=== PATIENT | male | born 1955 | race Caucasian/White ===

== ENCOUNTER 2018-07-23 13:30 | Inpatient (IN) | payer BC ==
[2018-07-31] MEDS ORDERED: VANCOMYCIN HCL 1,000 MG in DEXTROSE 5 % IN WATER 250 ML IVPB ONE ×2 (06:00)
[2018-07-31] MEDS ORDERED: METOCLOPRAMIDE 10 MG TABLET PO ONE (06:00)
[2018-07-31] MEDS ORDERED: FAMOTIDINE 20MG TABLET PO ONE (06:00)
[2018-07-31] MEDS ORDERED: MECLIZINE 25 MG TABLET PO ONE (06:00)
[2018-07-31 10:22] LABS: ABO GROUP O; RH TYPE NEGATIVE
[2018-07-31 10:24] LABS: ANTIBODY SCREEN NEGATIVE (NEGATIVE)
[2018-07-31] MEDS ORDERED: ACETAMINOPHEN W/ CODEINE 300MG/60MG TABLET PO PRN ×2 (14:00)
[2018-07-31] MEDS ORDERED: ONDANSETRON HCL IV 4 MG/2 ML VIAL IVP PRN (14:00)
[2018-07-31] MEDS ORDERED: MIDAZOLAM HCL 2MG/2ML VIAL IV ONE (14:00)
[2018-07-31] MEDS ORDERED: KETOROLAC 30 MG/ML VIAL IVP PRN ×2 (14:00)
[2018-07-31] MEDS ORDERED: FENTANYL PF 100MCG/2ML VIAL IV ONE (14:00)
[2018-07-31] MEDS ORDERED: KETOROLAC 30 MG/ML VIAL IVP ONE (14:00)
[2018-07-31] MEDS ORDERED: HYDROMORPHONE HCL 2 MG/ML VIAL IM PRN (14:00)
[2018-07-31] MEDS ORDERED: AL HYDROX/MAG HYDROX 30ML UD PO PRN (14:00)
[2018-07-31] MEDS ORDERED: BISACODYL 10 MG SUPP RC PRN (14:00)
[2018-07-31] MEDS ORDERED: TRAMADOL HCL 50 MG TABLET PO PRN (14:00)
[2018-07-31] MEDS ORDERED: CEFAZOLIN 2 Gram 2 GM/50 ML BAG IVPB SCH (14:00)
[2018-07-31] MEDS ORDERED: ACETAMINOPHEN 325 MG TAB PO PRN (14:00)
[2018-07-31] MEDS ORDERED: DIPHENHYDRAMINE HCL 25 MG CAPSULE PO PRN (14:00)
[2018-07-31] MEDS ORDERED: KETAMINE HCL 100MG/1ML VIAL INJ ONE (14:00)
[2018-07-31] MEDS ORDERED: MAGNESIUM HYDROXIDE 30 ML UDC PO PRN (14:00)
[2018-07-31] MEDS ORDERED: PROPOFOL 10 MG/ML VIAL IV ONE (14:00)
[2018-07-31] MEDS ORDERED: HYDROCODONE/APAP 10/325 TABLET PO PRN (14:00)
[2018-07-31] MEDS ORDERED: NALOXONE 0.4 MG/1 ML VIAL IVP PRN (14:00)
[2018-07-31] MEDS ORDERED: ZOLPIDEM TARTRATE 5 MG TABLET PO PRN (14:00)
[2018-07-31] MEDS: POTASSIUM CHLORIDE/D5-0.9%NACL 20 MEQ/1,000 ML BAG IV SCH ×2 (15:02→23:00)
[2018-07-31] MEDS ORDERED: PNEUM 13-VAL/PF 0.5 ML IM ONE (15:06)
[2018-07-31] MEDS ORDERED: TRANEXAMIC ACID 1,000 MG/10 ML ML IV ONE (15:50)
[2018-07-31] MEDS ORDERED: BUPIVACAINE 0.5% W/EPI MPF 30 ML VIAL IVP ONE (15:50)
--- NOTE | 2018-07-31 16:50 | Rehab Evaluation ---
Patient Information - Patient Information Diagnosis: R hip OA Ordered Treatment: PT Evaluate and Treat Status: Initial Evaluation Surgery: Yes (RTHR) Date of Surgery: 07/31/18 Past Medical/Surgical Hx: PAST MEDICAL/SURGICAL HISTORY Past Surgical History FOOT SX RIGHT ACHILLES TENDON LEFT C SCOPE PMH - Respiratory Hx Respiratory Disorders No PMH - Cardiovascular Hx Cardiovascular Disorders Yes Hx Hypertension Yes: PT QUIT TAKING HIS MEDS HAS NOT F/U WITH PCP TO RESTART Hx Irregular Heartbeat Yes: EXTRA BEAT HAS HAD HIS WHOLE LIFE Exercise Tolerance Fair Comment: HYPERLIPIDEMIA TAKES NO MEDS PMH - Neuro Hx Neurological Disorders No PMH - GI Hx Gastrointestinal Disorders No PMH - Hx Genitourinary Disorders Yes Hx Bladder Problem Yes: NOCTURIA PMH - Endocrine Hx Endocrine Disorders No PMH - Musculoskeletal Hx Musculoskeletal Disorders Yes Hx Arthritis Yes: RIGHT HIP AND RIGHT SHOULDER Comment: CTS BILAT WRISTS PMH - Psych Hx Psychiatric Problems Yes Hx Depression Yes: AT TIMES R/T HIP PAIN AND INABILITY TO BE ACTIVE PMH - Hematology/Oncology Hx Hematology/Oncology No Disorders Premorbid Status: Detail (The patient was independent with all mobility prior to surgery.) Social History: Detail Precautions: [place], Fall, Other (WBAT on the R LE) - Time With Patient Total Time Spent With Patient (Min): 30 Treatment Procedures: Detail (Initial Evaluation, gait training) Subjective Information - Subjective Information Per Patient (The patient had no complaints of pain.) Objective Data - Mental Status Patient Orientation: Oriented x3 - Visual Perception Appears within normal limits for therapeutic activities - ROM Not within normal limits (The patient's R hip is within THR precautions. All other AROM is WNL.) - Strength/Tone Not within normal limits (The patient's R LE strength was not tested secondary to s/p surgery. The patient's L LE strength is WNL.) - Bed Mobility Independent (The patient was independent with supine to and from sit transfer and scooting up in bed.) - Transfers Independent (The patient was independent with sit to and from stand transfer.) - Balance Balance Sitting: Good Balance Standing: Good - Gait Detail (The patient ambulated with a front wheeled walker WBAT on the R LE with supervision for safety a distance of 20 feet x 1.) Therapy Assessment - Therapy Assessment Detail (The patient was independent with bed mobility, transfers and required supervision for safety with ambulation only. Feel the patient will progress well with mobility. Due to stable condition the PT evaluation complexity is rated as low.) Problem List - Problem List Physical Therapy Problem List: Detail (1) Decreased R LE strength) Goals - Goals Physical Therapy Goals: 1) The patient will be independent with THR HEP. 2) The patient will ambulate with appropriate assistive device household distances WBAT on the R LE independently. 3) The patient will demonstrate good understanding of stairclimbing technique. Prognosis - Prognosis Good Plan - Plan Physical Therapy Plan: PT 1-2 sessions for gait training and instruction in HEP.
[2018-07-31] MEDS: HYDROCODONE/APAP 10/325 TABLET PO PRN (22:03)
[2018-07-31] MEDS: DOCUSATE SODIUM 100 MG CAPSULE PO SCH (22:03)
[2018-07-31] MEDS: VANCOMYCIN HCL 1,000 MG in DEXTROSE 5 % IN WATER 250 ML IVPB SCH ×2 (23:00)
[2018-08-01 06:21] LABS: HEMATOCRIT 37.6 % (42.0-52.0)
[2018-08-01 06:33] LABS: BLOOD UREA NITROGEN 18 mg/dL (8-23); CREATININE 0.7 mg/dL (0.7-1.2); EST GLOMERULAR FILTRATION RATE > 60 mL/min; GLUCOSE,RANDOM 141 mg/dL (74-109)
--- NOTE | 2018-08-01 08:31 | Rehab Evaluation ---
Patient Information - Patient Information Diagnosis: R hip OA Ordered Treatment: OT Evaluate and Treat Status: Initial Evaluation Surgery: Yes (RTHR) Date of Surgery: 07/31/18 Past Medical/Surgical Hx: PAST MEDICAL/SURGICAL HISTORY Past Surgical History FOOT SX RIGHT ACHILLES TENDON LEFT C SCOPE PMH - Respiratory Hx Respiratory Disorders No PMH - Cardiovascular Hx Cardiovascular Disorders Yes Hx Hypertension Yes: PT QUIT TAKING HIS MEDS HAS NOT F/U WITH PCP TO RESTART Hx Irregular Heartbeat Yes: EXTRA BEAT HAS HAD HIS WHOLE LIFE Exercise Tolerance Fair Comment: HYPERLIPIDEMIA TAKES NO MEDS PMH - Neuro Hx Neurological Disorders No PMH - GI Hx Gastrointestinal Disorders No PMH - Hx Genitourinary Disorders Yes Hx Bladder Problem Yes: NOCTURIA PMH - Endocrine Hx Endocrine Disorders No PMH - Musculoskeletal Hx Musculoskeletal Disorders Yes Hx Arthritis Yes: RIGHT HIP AND RIGHT SHOULDER Comment: CTS BILAT WRISTS PMH - Psych Hx Psychiatric Problems Yes Hx Depression Yes: AT TIMES R/T HIP PAIN AND INABILITY TO BE ACTIVE PMH - Hematology/Oncology Hx Hematology/Oncology No Disorders Premorbid Status: Detail (The patient was independent with all mobility prior to surgery. He and his share all home mgmt, meal prep, laundry and they care for her parents.) Social History: Detail (The patient lives with his and they are currently living in her parents finished basement to help care for them. He reports having no steps at the entrance and he plans to stay in the basement level. He has a tub/shower combination with grab bars, there are 2 steps into the tub. He has a standard height toilet with a riser seat and grab bars. His will be assisting with all IADL for a while. He has a long shoe horn, sock aid, stations superintendent, 2 wheeled walker and crutches.) Precautions: [place], Fall, Other (WBAT on the R LE, total hip precautions.) - Time With Patient Total Time Spent With Patient (Min): 45 Treatment Procedures: Detail (OT eval low complexity) Subjective Information - Subjective Information Per Patient Objective Data - Pain Pain Present: Yes (-07/15) - Mental Status Patient Orientation: Oriented x3 - Visual Perception Appears within normal limits for therapeutic activities - ROM Within normal limits (Donis UE AROM WNL) - Strength/Tone Within normal limits (Donis UE strength WNL although pt reports he has right shoulder problems and carpal tunnel syndrome.) - Coordination Appears within normal limits for therapeutic activities - Bed Mobility Independent (Pt was Ind with supine to sit after verbal cues for correct technique.) - Transfers Independent (Ind with sit to stand from EOB and chair heights.) - Balance Balance Sitting: Good Balance Standing: Good - Sensation Intact - Gait Detail (Pt ambulating in room with 2 wheeled walker and SBA) - ADL's/IADL's Detail (Pt educated and able to demonstrate learning of modified LE dressing techniques using stations superintendent, sock aid and long shoe horn to doff slipper socks and don socks, pants and slip on shoes while maintaining total hip precautions. Reviewed kitchen and shower safety and modifications as well as hip precautions , pt is able to verbalize understanding.) Therapy Assessment - Therapy Assessment Detail (Pt is Ind with modified LE dressing techniques while using adaptive equipment and maintaining total hip precautions.) Problem List - Problem List Physical Therapy Problem List: Detail (1) Decreased R LE strength) Occupational Therapy Problem List: Detail (No current IP OT problems identified. ) Goals - Goals Physical Therapy Goals: 1) The patient will be independent with THR HEP. 2) The patient will ambulate with appropriate assistive device household distances WBAT on the R LE independently. 3) The patient will demonstrate good understanding of stairclimbing technique. Occupational Therapy Goals: No current IP OT goals identified. Prognosis - Prognosis Good Plan - Plan Physical Therapy Plan: PT 1-2 sessions for gait training and instruction in HEP. Occupational Therapy Plan: No further IP OT recommended. Thank you for this referral.
[2018-08-01] MEDS: POTASSIUM CHLORIDE/D5-0.9%NACL 20 MEQ/1,000 ML BAG IV SCH (09:31)
[2018-08-01] MEDS: DOCUSATE SODIUM 100 MG CAPSULE PO SCH (09:32)
[2018-08-01] MEDS ORDERED: FERROUS SULFATE 325 MG TAB PO SCH (10:00)
[2018-08-01] MEDS ORDERED: RIVAROXABAN 10 MG TABLET PO SCH (10:00)
[2018-08-01] MEDS ORDERED: LOSARTAN POTASSIUM 25 MG TABLET PO SCH (10:00)
[2018-08-01] MEDS ORDERED: TRANEXAMIC ACID 1,000 MG/10 ML ML IV ONE (10:28)
[2018-08-01] MEDS ORDERED: 0.9 % SODIUM CHLORIDE 10 ML VIAL IVP ONE (10:28)
--- NOTE | 2018-08-01 10:50 | Physical Therapy Tx Note ---
Physical Therapy Tx Note - Treatment Note Tolerated: Good Total Time Spent With Patient: 20 Physical Therapy Tx Note: Detail (The patient was in bed when PT arrived. The patient completed THR exercises including:gluteal sets, ankle pumps, quad sets, hamstring sets, heel slides. The patient was unable to complete supine hip abduction but knew of proper technique. The patient ambulated independently with 2 wheeled walker a distance of 100 feet x 1, WBAT on the R LE. The patient ambulated on 3 steps with supervision for safety using one railing and folded walker using proper technique( Patient has steps that lead into bathtub.) The patient has met all PT goals and is discharged from inpatient PT.) Physical Therapy Problem List: Detail (1) Decreased R LE strength) Physical Therapy Goals: 1) The patient will be independent with THR HEP. (Goal Met). 2) The patient will ambulate with appropriate assistive device household distances WBAT on the R LE independently. (Goal Met). 3) The patient will demonstrate good understanding of stairclimbing technique. (Goal Met) Prognosis: Good Physical Therapy Plan: The patient has met all inpatient PT goals.
[2018-08-01] MEDS: HYDROCODONE/APAP 10/325 TABLET PO PRN (11:04)
[2018-08-01] MEDS: VANCOMYCIN HCL 1,000 MG in DEXTROSE 5 % IN WATER 250 ML IVPB SCH ×2 (11:05)
--- NOTE | 2018-08-03 10:01 | Operative Note ---
DATE OF SURGERY: 07/31/2018 PREOPERATIVE DIAGNOSIS: End-stage arthrosis of the right hip. POSTOPERATIVE DIAGNOSIS: End-stage arthrosis of the right hip. OPERATION: Cementless right total hip arthroplasty using Steen and Nephew components with a size 56 no-hole Reflection cup, 32 mm diameter highly crosslinked liner with 35-degree offset, a size 14 cementless [place] stem high offset with a +4 32 mm diameter Oxinium head. Staff Surgeon: Michel Srivastava MD Anesthesia: Spinal. PREPARATION: Chloraprep. INDIVIDUAL CONSIDERATIONS: None. PROCEDURE: The patient was taken to the operating room, placed supine on the operating room table. He had a successful induction of spinal anesthetic. He was placed on his side right side up and his right leg were prepped and draped in the usual fashion. The patient had direct posterior approach to the hip. Sharp dissection carried down through skin and subcutaneous tissues. Small veins were coagulated with a Bovie. The tensor gluteal fascia was opened along the entire length of the incision, and deep retractors were placed. Piriformis tendon was identified, piriformis fossa, and the short external rotators were removed exposing the posterior capsule. Posterior capsulectomy was performed. Hip was dislocated posteriorly. He had exposed bone and deformity of the head. A femoral neck cut was made about a fingerbreadth above the lesser trochanter with an oscillating saw. Large posterior wall osteophytes removed, and a rim capsulectomy was performed. The patient had a large medial wall osteophyte, and a 46 mm reamer was used to remove this. Then I reamed to the introitus, which was 55 for a 56 cup. I slightly under-reamed to 54. After thorough irrigation, I impacted a size 56 no-hole Reflection cup in 20 degrees of forward flexion and 40 degrees of abduction using the extraarticular alignment guide and bony landmarks. There was solid cementless fixation. I then placed a center cap screw and impacted the 35-degree offset liner with the offset posteriorly and slightly inferiorly. This gave an excellent stable acetabular construct, and this was packed off. The proximal femur was delivered into the wound. Box cutting osteotome was used to remove the proximal metaphyseal bone. Mid stem reaming was done to a size 14. I started feeling cortex between 12-13. I broached to 14 following the natural anteversion angle of about 25 degrees. After calcar reaming with a +4 head and high offset, we had excellent stability. I removed the broach, irrigated out completely, and then impacted a size 14 cementless [place] stem with solid cementless fixation, solid calcar contact. I went head and dried the Josemanuel taper after irrigation and clearing of any debris. Impacted a +4 32 mm diameter Oxinium head and reduced the hip. I basically had absolute stability. Full flexion and even rotation at 90 degrees with stability. Full anterior stability and extension and external rotation. The shuck was normal. The sciatic nerve was inspected and found to be completely intact. After irrigation, hemostasis was obtained with a Bovie. I mixed 1 g of tranexamic acid with 30 mL of saline and placed this deep in the fascia. Then the fascia was then closed with a running #2 quill, subcu was closed in layers with running 0 quill, skin was closed with valencia. I did infiltrate the skin and subcutaneous tissue 30 mL of 0.5% Marcaine with epinephrine prior to closure. A EDIL-type dressing was applied. He was taken back to recovery in good condition. There were no complications. KATHLEEN
== END 2018-08-01 13:45 | disposition home health service (06) | DRG 470 ==
LOC: MEDSURG 07-31 09:23
PROVIDERS: ADMIT Orthopaedic Surgery; ATTEND Orthopaedic Surgery
PROC: 0SR906A Replacement of Right Hip Joint with Oxidized Zirconium on Polyethylene Synthetic Substitute, Uncemented, Open Approach (ICD-10-PCS; principal; 2018-07-31 12:00)
DX: M16.11 Unilateral primary osteoarthritis, right hip (principal); I10 Essential (primary) hypertension
CPT/HCPCS: 76942; 80048; 85014; 85018; 86850; 86900; 86901; 90670; 90686; 97110; C1776; J1885; J3480; J3490; J7060

== ENCOUNTER 2018-09-05 12:43 | Day surgery (SDC) | payer BC ==
[2018-09-05] MEDS ORDERED: LIDOCAINE 1% W/EPI 1:200,000 MPF 30ML SQ ONE (12:44)
--- NOTE | 2018-09-06 09:00 | Operative Note ---
DATE OF SURGERY: 09/05/2018 PREOPERATIVE DIAGNOSIS: Right carpal tunnel syndrome. POSTOPERATIVE DIAGNOSIS: Right carpal tunnel syndrome. OPERATION: Right carpal tunnel release. Staff Surgeon: Michel Srivastava MD Anesthesia: Local. Preparation: Chloraprep. Individual Considerations: None. PROCEDURE: The patient was taken to the operating room and placed supine on the operating room table. His right arm was prepped and draped in the usual fashion. The patient had 1% lidocaine with epinephrine infiltrated along the longitudinal wrist crease volarly. The limb was then elevated, tourniquet was inflated to 250 mmHg. The patient had a volar approach to the carpal tunnel. Sharp dissection carried down through skin and subcutaneous tissues. Small veins were coagulated with a Bovie. Sharp dissection carried down through the palmar fascia through a very small adductor brevis and then carefully through the transverse metacarpal fascia distally to the superficial arch and recurrent branch and proximally to the antebrachial fascia. The median nerve was hourglass and obviously reddened and contused but there were no tumors present. Tourniquet was let down and hemostasis was obtained with compression. After irrigation, the skin was approximated with 4-0 nylon in a vertical mattress fashion. A sterile bulky compressive dressing was applied. The patient tolerated procedure well. Needle and sponge counts were correct. Estimated blood loss was minimal. He was taken back to recovery in good condition. There were no complications. KATHLEEN
== END 2018-09-05 16:19 | disposition home or self-care (01) ==
LOC: SUR 12:43
PROVIDERS: ATTEND Orthopaedic Surgery
DX: G56.01 Carpal tunnel syndrome, right upper limb (principal); I10 Essential (primary) hypertension

== ENCOUNTER 2018-09-19 10:08 | Day surgery (SDC) | payer BC ==
[2018-09-19] MEDS ORDERED: LIDOCAINE 1% W/EPI 1:200,000 MPF 30ML SQ ONE (12:17)
--- NOTE | 2018-09-20 08:30 | Operative Note ---
DATE OF SURGERY: 09/19/2018 PREOPERATIVE DIAGNOSIS: Left carpal tunnel syndrome. POSTOPERATIVE DIAGNOSIS: Left carpal tunnel syndrome. OPERATION: Left carpal tunnel release. Staff Surgeon: Michel Srivastava MD Anesthesia: Local. Preparation: Chloraprep. Individual Considerations: None. PROCEDURE: The patient was taken to the operating room and placed supine on the operating room table. His left arm was prepped and draped in the usual fashion. The patient had 1% lidocaine with epinephrine infiltrated along the longitudinal wrist crease volarly. The patient had an incision along the longitudinal wrist crease and then tapering to the ulnar side at a 45-degree angle of deflection. The limb was elevated. Tourniquet was inflated to 250 mmHg. Sharp dissection carried down through skin and subcutaneous tissue. Sharp dissection carried down through the palmar fascia through the small adductor brevis and then carefully through the transverse metacarpal fascia distally to the superficial arch and recurrent branch and proximally to the antebrachial fascia. The median nerve was intact but contused and hourglass. No tumors were found. After irrigation, tourniquet was let down and hemostasis was obtained with compression. The skin was approximated with 4-0 nylon in a vertical mattress fashion. A sterile bulky compressive hand dressing was applied. The patient tolerated procedure well. Needle and sponge counts were correct. Estimated blood loss was minimal. He was taken back to recovery in good condition. There were no complications. KATHLEEN
== END 2018-09-19 13:02 | disposition home or self-care (01) ==
LOC: SUR 10:08
PROVIDERS: ATTEND Orthopaedic Surgery
DX: G56.02 Carpal tunnel syndrome, left upper limb (principal); I10 Essential (primary) hypertension; E78.00 Pure hypercholesterolemia, unspecified